=== PATIENT | male | born 1980 | race Caucasian/White ===

== ENCOUNTER 2017-01-25 09:34 | Emergency (ER) | payer BC ==
[2017-01-25 10:34] VITALS: BP 175/112
--- NOTE | 2017-01-25 10:44 | UC ---
Back Pain HPI - HPI Summary HPI Summary: 36 yo male with PMH of HTN diagnosed at age 11, hx of lumbar surgery who presents with c/o fall 3 days ago in which he slipped and fell down 2 -3 stairs. He has immediate pain 10/10 and continued pain 7/10 with flexion/ extension and when sitting. Ok when standing or in certain positions. Feels that he is having muscle spasms. Denies numbness, tingling. Has been taking 800 mg Ibuprofen initially with some relief, none since 1 day ago. Did not take his blood pressure medication today. - History of Current Complaint Chief Complaint: UCBackPain Stated Complaint: BACK INJURY Time Seen by Provider: 01/25/17 10:41 Hx Obtained From: Patient Onset/Duration: Sudden Onset - 3 days ago after fall on stairs Timing: Intermittent Severity Initially: Severe Severity Currently: Moderate Pain Intensity: 6 Pain Scale Used: 0-10 Numeric Character: Sharp, Aching Aggravating: Movement Alleviating: Rest Associated Signs And Symptoms: Positive: Negative - Risk Factors AAA Risk Factors: Prior AAA TAD Risk Factors: Negative Cauda Equina Risk Factors: Negative Epidural Abscess Risk Factors: Negative - Allergies/Home Medications Allergies/Adverse Reactions: Allergies Allergy/AdvReac Type Severity Reaction Status Date / Time No Known Allergies Allergy Verified 01/25/17 10:27 Home Medications: Home Medications Cholecalciferol TAB* [Vitamin D TAB*] 2,000 unit PO SEE INSTRUCTIONS 01/25/17 [ History Confirmed 01/25/17] Ibuprofen TAB* [Advil TAB*] 800 mg PO Q8H PRN 01/25/17 [History Confirmed ] Telmisartan-Amlodipine [Telmisartan/Amlodipine 40-5 mg] 1 tab PO DAILY 01/25/17 [History Confirmed 01/25/17] PMH/Surg Hx/FS Hx/Imm Hx Previously Healthy: No Endocrine History Of: Denies: Diabetes Cardiovascular History Of: Reports: Cardiac Disorders - enlarged heart, Hypertension Respiratory History Of: Denies: COPD, Asthma - Surgical History Surgical History: Yes Surgery Procedure, Year, and Place: gastric bypass 2008, R shoulder surgery, back surgery - Family History Known Family History: Positive: Cardiac Disease - Social History Occupation: Employed Full-time Lives: With Family Alcohol Use: Weekly Substance Use Type: None Smoking Status (MU): Never Smoked Tobacco Have You Smoked in the Last Year: No - Immunization History Most Recent Influenza Vaccination: November 2016 Hx Tetanus, Diphtheria Vaccination: Yes Vaccination Up to Date: Yes Review of Systems Constitutional: Other - low right back pain Skin: Negative Eyes: Negative ENT: Negative Respiratory: Negative Cardiovascular: Negative Gastrointestinal: Negative Genitourinary: Negative Motor: Negative Neurovascular: Negative Musculoskeletal: Other: - right low back pain with back extention/flexion and sitting; ok with standing Neurological: Negative Psychological: Negative All Other Systems Reviewed And Are Negative: Yes Physical Exam Triage Information Reviewed: Yes Appearance: Well-Appearing, No Pain Distress, Well-Nourished Vital Signs: Initial Vital Signs Temp 98.5 F 01/25/17 10:24 Pulse 82 01/25/17 10:24 Resp 16 01/25/17 10:24 BP 175/112 01/25/17 10:24 Pulse Ox 99 01/25/17 10:24 Vital Signs Reviewed: Yes Neck: Positive: Supple, Nontender Respiratory: Positive: Chest non-tender, Lungs clear, Normal breath sounds, No respiratory distress, No accessory muscle use Cardiovascular: Positive: RRR, No Murmur, Pulses Normal, Brisk Capillary Refill Abdomen Description: Positive: Nontender, Soft. Negative: CVA Tenderness (R), CVA Tenderness (L) Bowel Sounds: Positive: Present Musculoskeletal: Positive: Strength Intact - bilateral LE, No Edema, ROM Limited @ - back flexion and extention guarded past 45 degrees. rotation intact slightly guarded. + sensation to b/l LE. Neurological: Positive: Alert Back Pain Course/Dx - Differential Dx/Diagnosis Differential Diagnosis/HQI/PQRI: Fracture, Strain, Sprain, Other - contusion Provider Diagnoses: 1. Right Low back Strain/Sprain. 2. Right Low back contusion. 3. Uncontrolled hypertension Discharge - Discharge Plan Condition: Stable Disposition: HOME Prescriptions: Cyclobenzaprine TAB* [Flexeril 10 MG TAB*] 10 mg PO TID PRN #10 tab PRN Reason: Spasms Patient Education Materials: Low Back Strain (ED), Contusion in Adults (ED), Hypertension (ED) Referrals: Bautista Napier DO [Primary Care Provider] - 2 Days (follow up in 1-2 days to recheck your blood pressure. ) Additional Instructions: Please take your blood pressure medication today when you get home as discussed , it is important to take it daily. Ice, heat, rest and gentle stretching of your lower back. If no improvement in 7 days see your primary, if you still have a lot of pain you may need a CT scan.
--- NOTE | 2017-01-25 11:15 | RAD ---
Indication: Posterior RIGHT hip pain following fall. Lower back pain. Previous L4-L5 surgery. Comparison: Report of October 08, 2005. Technique: AP pelvis and AP and frog-leg lateral views RIGHT hip. Report: The RIGHT hip is normally located. Negative for fracture of the RIGHT proximal femur or pelvis. Negative for pelvic joint diastases. Minimal osteophytosis at the RIGHT hip. Negative for significant joint space narrowing. Unremarkable soft tissue contours. IMPRESSION: 1. No radiographic evidence for RIGHT hip fracture. 2. Mild osteoarthritis.
== END 2017-01-25 11:42 | disposition home or self-care (01) ==
LOC: UCCORT 09:34
DX: S39.012A Strain of muscle, fascia and tendon of lower back, initial encounter (principal); S30.0XXA Contusion of lower back and pelvis, initial encounter; W10.9XXA Fall (on) (from) unspecified stairs and steps, initial encounter; Y93.9 Activity, unspecified; Y92.9 Unspecified place or not applicable; I10 Essential (primary) hypertension; I51.7 Cardiomegaly; Z98.84 Bariatric surgery status
CPT/HCPCS: 99212; G0463

== ENCOUNTER 2017-08-11 11:33 | Emergency (ER) | payer BC ==
--- NOTE | 2017-08-11 12:34 | RAD ---
HISTORY: Right calf COMPARISONS: None relevant TECHNIQUE: Multiple transverse and longitudinal ultrasound images were obtained of the right lower extremity from the level of the common femoral vein inferiorly through to the infrapopliteal veins using grayscale, color Doppler, and spectral Doppler imaging with and without compression and with augmentation. Comparison images were obtained of the contralateral common femoral vein. FINDINGS: VEINS: The venous system of the right lower extremity is compressible throughout its course, with normal flow on color Doppler imaging and normal response to augmentation on spectral Doppler imaging. SOFT TISSUES: There is mild edema of the right foreleg in the area of pain OTHER FINDINGS: None. IMPRESSION: NO RIGHT LOWER EXTREMITY DEEP VEIN THROMBOSIS
[2017-08-11 13:09] VITALS: BP 168/109
--- NOTE | 2017-08-11 13:15 | UC ---
Lower Extremity/Ankle HPI - HPI Summary HPI Summary: right lower leg pain and swelling x 3 weeks no known injury , - History of Current Complaint Chief Complaint: UCLowerExtremity Stated Complaint: RIGHT LEG PAIN Time Seen by Provider: 08/11/17 11:41 Hx Obtained From: Patient Onset/Duration: Gradual Onset, Lasting Weeks - 3 Severity Initially: Moderate Severity Currently: Moderate Aggravating Factor(s): Standing, Ambulation Alleviating Factor(s): Nothing - Allergies/Home Medications Allergies/Adverse Reactions: Allergies Allergy/AdvReac Type Severity Reaction Status Date / Time No Known Allergies Allergy Verified 08/11/17 11:47 Home Medications: Home Medications Thyroid Medication DAILY 08/11/17 [History] PMH/Surg Hx/FS Hx/Imm Hx Previously Healthy: Yes Cardiovascular History: Hypertension - Surgical History Surgical History: Yes Surgery Procedure, Year, and Place: gastric bypass 2008, R shoulder surgery, back surgery - Family History Known Family History: Positive: Cardiac Disease - Social History Alcohol Use: Weekly Substance Use Type: None Smoking Status (MU): Never Smoked Tobacco Have You Smoked in the Last Year: No - Immunization History Most Recent Influenza Vaccination: November 2016 Hx Tetanus, Diphtheria Vaccination: Yes Vaccination Up to Date: Yes Review of Systems Constitutional: Negative Skin: Negative Eyes: Negative ENT: Negative Respiratory: Negative Musculoskeletal: Edema - right lower leg Is Patient Immunocompromised?: No All Other Systems Reviewed And Are Negative: Yes Physical Exam Triage Information Reviewed: Yes Appearance: Well-Appearing, No Pain Distress, Well-Nourished Vital Signs: Initial Vital Signs Temp 97.1 F 08/11/17 11:43 Pulse 99 08/11/17 11:43 Resp 16 08/11/17 11:43 BP 183/109 08/11/17 11:43 Pulse Ox 98 08/11/17 11:43 Vital Signs Reviewed: Yes Eyes: Positive: Conjunctiva Clear ENT: Positive: Normal ENT inspection, Hearing grossly normal, Pharynx normal Neck exam: Normal Neck: Positive: Supple, Nontender, No Lymphadenopathy Respiratory: Positive: Chest non-tender, Lungs clear, Normal breath sounds, No respiratory distress Cardiovascular: Positive: RRR, No Murmur, Pulses Normal Musculoskeletal: Positive: Edema @ - right lower leg + 2 edema tenderness mid / lower gotti Psychological Exam: Normal Skin Exam: Normal Lower Extremity Course/Dx - Differential Dx/Diagnosis Provider Diagnoses: right lower leg pain Discharge - Discharge Plan Condition: Stable Disposition: HOME Patient Education Materials: Hypertension (ED), Leg Pain (ED) Referrals: Bautista Napier DO [Primary Care Provider] - 7 Days Additional Instructions: follow up with your pcp today for the eval. of high blood pressure cont. with current meds
--- NOTE | 2017-08-11 13:16 | RAD ---
Indication: 3 weeks RIGHT distal tibia pain and swelling. Long distance walking. Runner. Comparison: RIGHT lower extremity venous ultrasound of the same date. Technique: AP and lateral views RIGHT lower leg. Report: Normal articular alignment. No fracture or radiographic stigmata of stress reaction evident. No focal osseous lesions evident. On the lateral view there is a 1.4 cm maximum dimension calcified structure at level of the anterior recess of the talocrural joint which may represent a loose body. Mid to distal subcutaneous edema most prominent anteriorly. IMPRESSION: 1. Negative for fracture or radiographic stigmata of stress reaction. 2. Nonspecific soft tissue swelling most prominent anteriorly. 3. Potential loose body at the ankle joint. Correlate with clinical assessment.
== END 2017-08-11 13:15 | disposition home or self-care (01) ==
LOC: UCCORT 11:33
DX: M79.604 Pain in right leg (principal); I10 Essential (primary) hypertension
CPT/HCPCS: 99212; G0463